=== PATIENT | female | born 1970 | race Caucasian/White ===

== ENCOUNTER 2018-08-21 11:47 | Emergency (ER) | payer OTHER ==
[2018-08-21] MEDS ORDERED: TORAdol 30 mg Injection IV ONE (12:36)
[2018-08-21] MEDS ORDERED: Phenergan 25 MG INJ IV ONE (12:36)
[2018-08-21] MEDS ORDERED: Hydromorphone 1 mg/ml Ampule IV ONE (12:36)
[2018-08-21] MEDS ORDERED: TORAdol 30 mg Injection ONE (12:42)
[2018-08-21] MEDS ORDERED: Phenergan 25 MG INJ ONE (12:42)
[2018-08-21] MEDS ORDERED: Hydromorphone 1 mg/ml Ampule ONE (12:43)
--- NOTE | 2018-08-21 12:59 | ERPHSYRPT ---
- History of Present Illness Time Seen by Provider: 08/21/18 12:35 Source: patient Exam Limitations: no limitations Patient Subjective Stated Complaint: pain in lower back that radiates around both sides and goes up middle of back Triage Nursing Assessment: Pt reports that she was bending over in her dresser drawers yesterday and when she stood up pain began in her lower back, radiates to both sides and up the middle of her back, periodical numbness of right leg, vitals wnl, pulses normal, appears to be in moderate pain Physician History: 48 y/o white female with no h/o back issues, presents with less than 24 hours bilat flank pain. began suddenly yesterday afternoon after pt stood up after bending over a dresser. she denies trauma. pt has a h/o ureteral stones and pt states this feels just like that. pt denies gross hematuria and denies dysuria. pt denies cp and denies abd pain. Method of Injury: other (no injury) Quality: sharp, stabbing Back Pain Location: paraspinous muscles (bilat) Severity of Pain-Max: moderate Severity of Pain-Current: moderate Modifying Factors: Improves With: movement (not as much pain if pt upright and moving) Associated Symptoms: denies symptoms, No fever, No chills, No sweating, No nausea, No vomiting Previous symptoms: no prior history Allergies/Adverse Reactions: No Known Drug Allergies Allergy (Verified 08/21/18 12:27) - Review of Systems Constitutional: No Symptoms, No Fever, No Chills Eyes: No Symptoms Ears, Nose, & Throat: No Symptoms Respiratory: No Symptoms, No Cough, No Dyspnea, No Stridor, No Wheezing Cardiac: No Symptoms, No Chest Pain, No Palpitations, No Syncope Abdominal/Gastrointestinal: No Symptoms Genitourinary Symptoms: No Symptoms, , No Dysuria, No Hematuria Musculoskeletal: Back Pain, No Fall, No Injury Skin: No Symptoms Neurological: No Symptoms Psychological: No Symptoms Endocrine: No Symptoms Hematologic/Lymphatic: No Symptoms Immunological/Allergic: No Symptoms All Other Systems: Reviewed and Negative - Past Medical History Pertinent Past Medical History: No Neurological History: No Pertinent History ENT History: No Pertinent History Cardiac History: No Pertinent History Respiratory History: No Pertinent History Endocrine Medical History: No Pertinent History Musculoskeletal History: No Pertinent History GI Medical History: No Pertinent History History: No Pertinent History Psycho-Social History: No Pertinent History Female Reproductive Disorders: No Pertinent History - Past Surgical History Past Surgical History: Yes Neuro Surgical History: No Pertinent History Cardiac: No Pertinent History Respiratory: No Pertinent History Gastrointestinal: No Pertinent History Genitourinary: No Pertinent History Musculoskeletal: No Pertinent History Female Surgical History: Tubal Ligation - Social History Smoking Status: Current every day smoker How long have you smoked: 30 years Exposure to second hand smoke: Yes Drug Use: marijuana Patient Lives Alone: Yes - Female History Hx Now: No (tubal) - Nursing Vital Signs Nursing Vital Signs: Initial Vital Signs Temperature 97.6 F 08/21/18 12:17 Pulse Rate 69 08/21/18 12:17 Blood Pressure 108/74 08/21/18 12:17 O2 Sat by Pulse Oximetry 99 08/21/18 12:17 Pain Scale Pain Intensity [Back] 9 Pain Intensity 9 - Physical Exam General Appearance: moderate distress, alert, anxiety Eye Exam: PERRL/EOMI, eyes nml inspection Ears, Nose, Throat Exam: normal ENT inspection, moist mucous membranes Neck Exam: normal inspection, non-tender, supple, full range of motion Respiratory Exam: normal breath sounds, lungs clear, airway intact, No chest tenderness, No respiratory distress, No accessory muscle use, No rhonchi, No wheezing, No stridor Cardiovascular Exam: regular rate/rhythm, normal heart sounds, normal peripheral pulses Gastrointestinal Exam: soft, normal bowel sounds, No tenderness, No guarding, No rebound Pelvic Exam: not done Rectal Exam: not done Back Exam: normal inspection, normal range of motion, CVA tenderness (bilat), No vertebral tenderness Extremity Exam: normal inspection, normal range of motion, pelvis stable Neurologic Exam: alert, oriented x 3, cooperative, osteopathic neurologist II-XII nml as tested Skin Exam: normal color, warm, dry Lymphatic Exam: No adenopathy SpO2 Interpretation: normal SpO2: 99 Oxygen Delivery: Room Air - Course Nursing assessment & vital signs reviewed: Yes Ordered Tests: Active Orders 24 hr Category Date Time Status IV Insertion STAT Care 08/21/18 12:36 Active UA W/RFX UR CULTURE Stat Lab 08/21/18 12:38 Completed Medication Summary Discontinued Medications Generic Name Dose Route Start Last Admin Trade Name Freq PRN Reason Stop Dose Admin Hydromorphone HCl 0.5 mg 08/21/18 12:36 10/16/18 12:49 Hydromorphone 1 Mg/Ml Ampule IV 08/21/18 12:37 0.5 mg STAT ONE Administration Hydromorphone HCl Confirm 08/21/18 12:43 Hydromorphone 1 Mg/Ml Ampule Administered 08/21/18 12:44 Dose 1 mg .ROUTE .STK-MED ONE Ketorolac Tromethamine 30 mg 08/21/18 12:36 08/21/18 12:48 Toradol 30 Mg Injection IV 08/21/18 12:37 30 mg STAT ONE Administration Ketorolac Tromethamine Confirm 08/21/18 12:42 Toradol 30 Mg Injection Administered 08/21/18 12:43 Dose 30 mg .ROUTE .STK-MED ONE Promethazine HCl 12.5 mg 08/21/18 12:36 08/21/18 12:48 Phenergan 25 Mg Inj IV 08/21/18 12:37 12.5 mg STAT ONE Administration Promethazine HCl Confirm 08/21/18 12:42 Phenergan 25 Mg Inj Administered 08/21/18 12:43 Dose 25 mg .ROUTE .STK-MED ONE Lab/Rad Data: Laboratory Results 08/21/18 Range/Units 12:38 Urine Color YELLOW (YELLOW) Urine Appearance CLOUDY (CLEAR) Urine pH 5.0 (5-6) Ur Specific [place] 1.016 (1.005-1.025) Urine Protein NEGATIVE (Negative) Urine Ketones NEGATIVE (NEGATIVE) Urine Blood SMALL (0-5) Calvin/ul Urine Nitrite NEGATIVE (NEGATIVE) Urine Bilirubin NEGATIVE (NEGATIVE) Urine Urobilinogen NEGATIVE (0-1) mg/dL Ur Leukocyte Esterase NEGATIVE (NEGATIVE) Urine WBC (Auto) 0-2 (0-5) /HPF Urine RBC (Auto) 0-2 (0-2) /HPF U Epithel Cells (Auto) MODERATE (FEW) /HPF Urine Bacteria (Auto) FEW (NEGATIVE) /HPF Urine Mucus (Auto) SLIGHT (NEGATIVE) /HPF Urine Culture Reflexed NO (NO) Urine Glucose NEGATIVE (NEGATIVE) mg/dL - Progress Progress: improved, pain not gone completely, re-examined Counseled pt/family regarding: lab results, diagnosis, need for follow-up - Departure Time of Disposition: 13:52 Departure Disposition: Home Clinical Impression: Back pain Condition: Stable Critical Care Time: No Additional Instructions: follow up with primary doctor for further management Prescriptions: Carisoprodol 350 mg [Soma 350 mg] 350 mg PO Q8H PRN PRN #10 tablet PRN Reason: Muscle Spasms Oxycodone HCl/Acetaminophen [Percocet 5-325 mg Tablet] 1 each PO Q8H PRN PRN #9 tablet MDD 3 PRN Reason: Pain Prednisone 10 mg [Deltasone 10 mg] 10 mg PO TID #12 tablet
[2018-08-21 13:19] LABS: Appearance CLOUDY (CLEAR); Bilirubin NEGATIVE (NEGATIVE); Blood SMALL Ery/ul (0-5); Glucose NEGATIVE (NEGATIVE); Ketones NEGATIVE (NEGATIVE); Leukocyte Esterase NEGATIVE (NEGATIVE); Nitrite NEGATIVE (NEGATIVE); Protein,Urine Dip NEGATIVE (Negative); Specific Gravity 1.016 (1.005-1.025); Urobilinogen NEGATIVE mg/dL (0-1)
[2018-08-21 14:05] VITALS: BP 100/52; PULSE 51; O2SAT 100
== END 2018-08-21 14:13 | disposition home or self-care (01) ==
LOC: ED 11:47
DX: M54.9 Dorsalgia, unspecified (principal)
CPT/HCPCS: 36000; 81001; 96374; 96375; 99284; J1170; J1885; J2550

== ENCOUNTER 2020-12-20 12:34 | Emergency (ER) | payer OTHER ==
[2020-12-20 12:47] VITALS: BP 146/83; PULSE 83; O2SAT 98
[2020-12-20] MEDS ORDERED: Adacel Vial IM ONE ×2 (12:48→12:59)
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
--- NOTE | 2020-12-20 17:56 | XRAY ---
Indication: Pain following injury. Comparison: None 3 view right hand obtained. No bony, articular, or soft tissue abnormalities.
== END 2020-12-20 14:17 | disposition home or self-care (01) ==
LOC: ED 12:34
DX: M79.644 Pain in right finger(s) (principal); S62.609A Fracture of unspecified phalanx of unspecified finger, initial encounter for closed fracture; S64.498A Injury of digital nerve of other finger, initial encounter; M79.89 Other specified soft tissue disorders; W23.1XXA Caught, crushed, jammed, or pinched between stationary objects, initial encounter; F17.210 Nicotine dependence, cigarettes, uncomplicated
CPT/HCPCS: 29130; 73130; 90471; 90715; 99284

== ENCOUNTER 2022-10-11 12:40 | Emergency (ER) | payer OTHER ==
--- NOTE | 2022-10-11 12:44 | ERPHSYRPT ---
- History of Present Illness Time Seen by Provider: 10/11/22 12:43 Source: patient Exam Limitations: no limitations Physician History: This is an overweight white female who presents with left flank pain that is worsened over the last 2 days. Initially, Aleve and ibuprofen were helpful. However, this morning the pain was even worse pain was not improved with Flexeril dose. Patient did not fall or suffer any acute trauma. She has had history of ureterolithiasis in the past. She denies chest pain. She denies shortness of breath. She denies dysuria Timing/Duration: day(s) (2) Quality: aching, cramping Severity of Pain-Max: moderate Severity of Pain-Current: moderate Associated Symptoms: denies symptoms Previous symptoms: same symptoms as today Allergies/Adverse Reactions: No Known Drug Allergies Allergy (Verified 12/20/20 12:38) Home Medications: Cyclobenzaprine HCl 10 mg [Cyclobenzaprine 10 MG] 10 mg PO DAILY PRN 10/11/22 [History] Prednisone 20 mg [Deltasone 20 mg] 20 mg PO DAILY 10/11/22 [History] Hx Tetanus, Diphtheria Vaccination/Date Given: No Hx Influenza Vaccination/Date Given: No Hx Pneumococcal Vaccination/Date Given: No Travel Risk - International Travel Have you traveled outside of the country in past 3 weeks: No - Coronavirus Screening Are you exhibiting any of the following symptoms?: No Close contact with a COVID-19 positive Pt in past 14-21 Days: No - Review of Systems Constitutional: No Symptoms Eyes: No Symptoms Ears, Nose, & Throat: No Symptoms Respiratory: No Symptoms Cardiac: No Symptoms Abdominal/Gastrointestinal: No Symptoms, No Abdominal Pain Genitourinary Symptoms: Flank Pain (Left flank) Musculoskeletal: No Symptoms Skin: No Symptoms Neurological: No Symptoms Psychological: No Symptoms Endocrine: No Symptoms Hematologic/Lymphatic: No Symptoms Immunological/Allergic: No Symptoms All Other Systems: Reviewed and Negative - Past Medical History Pertinent Past Medical History: No Neurological History: No Pertinent History ENT History: No Pertinent History Cardiac History: No Pertinent History Respiratory History: No Pertinent History Endocrine Medical History: No Pertinent History Musculoskeletal History: Osteoarthritis GI Medical History: No Pertinent History History: No Pertinent History Psycho-Social History: No Pertinent History Female Reproductive Disorders: No Pertinent History Other Medical History: Patient reports recurrent kidney stones - Past Surgical History Past Surgical History: Yes Neuro Surgical History: No Pertinent History Cardiac: No Pertinent History Respiratory: No Pertinent History Gastrointestinal: No Pertinent History Genitourinary: No Pertinent History Musculoskeletal: No Pertinent History Female Surgical History: Tubal Ligation - Social History Smoking Status: Current every day smoker How long have you smoked: 30 years Exposure to second hand smoke: Yes Drug Use: marijuana Patient Lives Alone: No - Nursing Vital Signs Nursing Vital Signs: Initial Vital Signs Temperature 97.6 F 10/11/22 12:51 Pulse Rate 75 10/11/22 12:51 Respiratory Rate 16 10/11/22 12:51 Blood Pressure 130/86 10/11/22 12:51 O2 Sat by Pulse Oximetry 98 10/11/22 12:51 Pain Scale Pain Intensity 4 - Physical Exam General Appearance: mild distress, alert, anxiety, obese Eye Exam: PERRL/EOMI, eyes nml inspection Ears, Nose, Throat Exam: normal ENT inspection, moist mucous membranes Neck Exam: normal inspection, non-tender, supple, full range of motion Respiratory Exam: normal breath sounds, lungs clear, airway intact, No chest tenderness, No respiratory distress Cardiovascular Exam: regular rate/rhythm, normal heart sounds, normal peripheral pulses Gastrointestinal Exam: soft, normal bowel sounds, tenderness (+/- Left lower quadrant), guarding (+/- Left lower quadrant to palpation) Pelvic Exam: not done Rectal Exam: not done Back Exam: normal inspection, normal range of motion, CVA tenderness (Left), No vertebral tenderness Extremity Exam: normal inspection, normal range of motion, pelvis stable Neurologic Exam: alert, oriented x 3, cooperative, homeworker II-XII nml as tested, normal mood/affect, nml cerebellar function, nml station & gait, sensation nml Skin Exam: normal color, warm, dry Lymphatic Exam: No adenopathy SpO2 Interpretation: normal O2 Delivery: Room Air - Course Nursing assessment & vital signs reviewed: Yes Ordered Tests: Active Orders 24 hr Category Date Time Status IV Insertion STAT Care 10/11/22 12:58 Active ABDOMEN AND PELVIS W/0 CONTRAS [CT] Stat Exams 10/11/22 12:59 Completed AMYLASE Stat Lab 10/11/22 13:00 Completed CBC W DIFF Stat Lab 10/11/22 13:00 Completed CMP Stat Lab 10/11/22 13:00 Completed CULTURE,URINE Stat Lab 10/11/22 13:03 Received LIPASE Stat Lab 10/11/22 13:00 Completed UA W/RFX CULTURE Stat Lab 10/11/22 13:03 Completed Medication Summary Discontinued Medications Generic Name Dose Route Start Last Admin Trade Name Gideon PRN Reason Stop Dose Admin Hydromorphone HCl 1 mg 10/11/22 12:58 10/11/22 13:11 Hydromorphone 1 Mg/1ml Inj 1 Mg/Ml Syringe IV 10/11/22 12:59 1 mg STAT ONE Administration Hydromorphone HCl Confirm 10/11/22 13:05 Hydromorphone 1 Mg/1ml Inj 1 Mg/Ml Syringe Administered 10/11/22 13:06 Dose 1 mg .ROUTE .STK-MED ONE Sodium Chloride 1,000 mls @ 999 mls/hr 10/11/22 12:58 10/11/22 14:20 Sodium Chloride 0.9% 1000 Ml IV 10/11/22 13:58 Infused .Q1H1M STA Infusion Sodium Chloride Confirm 10/11/22 13:05 Sodium Chloride 0.9% 1000 Ml Administered 10/11/22 13:06 Dose 1,000 mls @ ud .ROUTE .STK-MED ONE Ketorolac Tromethamine 30 mg 10/11/22 12:58 10/11/22 13:11 Ketorolac Tromethamine 30 Mg/Ml Inj IV 10/11/22 12:59 30 mg STAT ONE Administration Ketorolac Tromethamine Confirm 10/11/22 13:05 Ketorolac Tromethamine 30 Mg/Ml Inj Administered 10/11/22 13:06 Dose 30 mg .ROUTE .STK-MED ONE Ondansetron HCl 4 mg 10/11/22 12:58 10/11/22 13:11 Ondansetron Hcl 4 Mg/2 Ml Vial IV 10/11/22 12:59 4 mg STAT ONE Administration Ondansetron HCl Confirm 10/11/22 13:05 Ondansetron Hcl 4 Mg/2 Ml Vial Administered 10/11/22 13:06 Dose 4 mg .ROUTE .STK-MED ONE Lab/Rad Data: Laboratory Result Diagrams 10/11/22 13:00 10/11/22 13:00 Laboratory Results 10/11/22 10/11/22 10/11/22 Range/Units 13:03 13:00 13:00 WBC 16.5 H (4.0-10.5) x10^3/uL RBC 4.51 (4.1-5.4) x10^6/uL Hgb 14.1 (12.0-16.0) g/dL Hct 45.4 (35-47) % MCV 100.7 H (78-100) fL MCH 31.3 (26-32) pg MCHC 31.1 L (32-36) g/dL RDW 13.2 (11.5-14.0) % Plt Count 311 (150-450) x10^3/uL MPV 11.4 H (7.5-11.0) fL Gran % 76.4 H (36.0-66.0) % Immature Gran % (Auto) 0.5 H (0.00-0.4) % Nucleat RBC Rel Count 0.0 (0.00-0.1) % Eos # (Auto) 0.14 (0-0.5) x10^3/uL Immature Gran # (Auto) 0.09 H (0.00-0.03) x10^3u/L Absolute Lymphs (auto) 2.70 (1.0-4.6) x10^3/uL Absolute Monos (auto) 0.92 (0.0-1.3) x10^3/uL Absolute Nucleated RBC 0.00 (0.00-0.01) x10^3u/L Lymphocytes % 16.4 L (24.0-44.0) % Monocytes % 5.6 (0.0-12.0) % Eosinophils % 0.9 (0.00-5.0) % Basophils % 0.2 (0.0-0.4) % Absolute Granulocytes 12.59 H (1.4-6.9) x10^3/uL Basophils # 0.03 (0-0.4) x10^3/uL Sodium 138 (137-145) mmol/L Potassium 4.4 (3.5-5.1) mmol/L Chloride 108 H (98-107) mmol/L Carbon Dioxide 20 L (22-30) mmol/L Anion Gap 14.0 (5-15) MEQ/L BUN 20 H (7-17) mg/dL Creatinine 0.50 L (0.52-1.04) mg/dL Estimated GFR > 60.0 ML/MIN Glucose 128 H (74-106) mg/dL Calcium 9.2 (8.4-10.2) mg/dL Total Bilirubin 0.70 (0.2-1.3) mg/dL AST 34 (14-36) U/L ALT 30 (0-35) U/L Alkaline Phosphatase 128 H (38-126) U/L Serum Total Protein 8.2 (6.3-8.2) g/dL Albumin 4.3 (3.5-5.0) g/dL Amylase 89 (30-110) U/L Lipase 47 (23-300) U/L Urinalys Dipstick Clnc MAIN LAB Urine Color YELLOW (YELLOW) Urine Appearance SLIGHTLY CLOUDY A (CLEAR) Urine pH 6.0 (5-6) Ur Specific [place] >=1.030 A (1.005-1.025) POC Urine Protein Conf NEGATIVE (Negative) Urine Ketones NEGATIVE (NEGATIVE) Urine Nitrite NEGATIVE (NEGATIVE) Urine Bilirubin NEGATIVE (NEGATIVE) Urine Urobilinogen 0.2 (0-1) mg/dL Urine Leukocytes TRACE A (NEGATIVE) Urine WBC (Auto) 3-5 A (0-5) /HPF Urine RBC (Auto) 3-5 A (0-2) /HPF U Epithel Cells (Auto) FEW (FEW) /HPF Urine Bacteria (Auto) RARE (NEGATIVE) /HPF Urine RBC TRACE-INTACT A (0-5) Calvin/ul Urine Mucus (Auto) SLIGHT A (NEGATIVE) /HPF Ur Culture Indicated? YES Urine Glucose NEGATIVE (NEGATIVE) mg/dL - Progress Progress: improved, pain not gone completely Progress Note: 10/11/22 14:31 CT scan without contrast shows no evidence of renal calculus or obstructive uropathy. There is mild sigmoid diverticulitis without complications. Counseled pt/family regarding: lab results, diagnosis, need for follow-up, rad results - Departure Departure Disposition: Home Clinical Impression: Sigmoid diverticulitis, Urinary tract infection Condition: Stable Critical Care Time: No Referrals: DOCTOR,NO FAMILY [Primary Care Provider] - Follow up/PCP as directed Additional Instructions: Drink plenty of clear liquids. Take your antibiotics as prescribed. Follow-up with your primary care physician for further evaluation management. Return to the emergency department if symptoms worsen. Prescriptions: Hydrocodone/APAP 5/325 [[place] 5/325 mg] 1 each PO Q8H PRN PRN #10 tablet MDD 3 PRN Reason: Pain Ciprofloxacin [Cipro 500 MG] 500 mg PO BID #14 tablet Metronidazole 500 mg [Flagyl 500 MG] 500 mg PO TID #21 tablet
[2022-10-11] MEDS ORDERED: TORAdol 30 mg Injection IV ONE (12:58)
[2022-10-11] MEDS ORDERED: Hydromorphone 1 mg/ml Injection IV ONE (12:58)
[2022-10-11] MEDS ORDERED: Zofran 4 MG/2 ML VIAL IV ONE (12:58)
[2022-10-11] MEDS ORDERED: Sodium Chloride 0.9% 1000 ML 1,000 ML IV STA (12:58)
[2022-10-11] MEDS ORDERED: Zofran 4 MG/2 ML VIAL ONE (13:05)
[2022-10-11] MEDS ORDERED: Sodium Chloride 0.9% 1000 ML 1,000 ML ONE (13:05)
[2022-10-11] MEDS ORDERED: Hydromorphone 1 mg/ml Injection ONE (13:05)
[2022-10-11] MEDS ORDERED: TORAdol 30 mg Injection ONE (13:05)
[2022-10-11 13:19] LABS: Absolute Neutrophil Ct (ANC) 12.59 x10^3/uL (1.4-6.9); Basophil (Absolute #) 0.03 x10^3/uL (0-0.4); Eosinophil % 0.9 % (0.00-5.0); Eosinophil (Absolute #) 0.14 x10^3/uL (0-0.5); Hematocrit 45.4 % (35-47); Hemoglobin 14.1 g/dL (12.0-16.0); Lymphocytes % 16.4 % (24.0-44.0); Mean Cell Volume 100.7 fL (78-100); Mean Corpuscular Hemoglobin 31.3 pg (26-32); Mean Corpuscular Hgb Concent. 31.1 g/dL (32-36); Mean Platelet Volume 11.4 fL (7.5-11.0); Monocyte (Absolute #) 0.92 x10^3/uL (0.0-1.3); Monocytes % 5.6 % (0.0-12.0); Neutrophil % 76.4 % (36.0-66.0); Platelet Count 311 x10^3/uL (150-450); Red Blood Count 4.51 x10^6/uL (4.1-5.4); Red Cell Distribution Width 13.2 % (11.5-14.0); White Blood Count 16.5 x10^3/uL (4.0-10.5)
[2022-10-11 13:25] LABS: Appearance SLIGHTLY CLOUDY (CLEAR); Bilirubin NEGATIVE (NEGATIVE); Dipstick done @ ? MAIN LAB; Glucose NEGATIVE (NEGATIVE); Ketones NEGATIVE (NEGATIVE); Nitrite NEGATIVE (NEGATIVE); Protein,Urine Dip NEGATIVE (Negative); RBC TRACE-INTACT Ery/ul (0-5); Specific Gravity >=1.030 (1.005-1.025); Urobilinogen 0.2 mg/dL (0-1)
[2022-10-11 13:34] LABS: Epithelial Cells FEW /HPF (FEW); Mucus SLIGHT /HPF (NEGATIVE)
[2022-10-11 13:40] LABS: ALBUMIN 4.3 g/dL (3.5-5.0); ALKALINE PHOSPHATASE 128 U/L (38-126); AMYLASE 89 U/L (30-110); BLOOD UREA NITROGEN 20 mg/dL (7-17); CHLORIDE 108 mmol/L (98-107); Calcium 9.2 mg/dL (8.4-10.2); Carbon Dioxide 20 mmol/L (22-30); EST GLOMERULAR FILTRATION RATE > 60.0 ML/MIN; Glucose 128 mg/dL (74-106); LIPASE 47 U/L (23-300); SGOT/AST 34 U/L (14-36); SGPT/ALT 30 U/L (0-35); SODIUM 138 mmol/L (137-145); Total Protein 8.2 g/dL (6.3-8.2)
[2022-10-11 13:41] LABS: Potassium 4.4 mmol/L (3.5-5.1)
[2022-10-11 14:05] LABS: Bacteria RARE /HPF (NEGATIVE); Urine Cultured Indicated? YES
--- NOTE | 2022-10-11 14:08 | XRAY ---
Indication: Left flank pain 6 days. History ureterolithiasis. Multiple contiguous axial images obtained through the abdomen and pelvis without contrast using renal stone protocol. Comparison: None Lung bases demonstrates dependent atelectasis and tiny right base calcific granuloma. Heart not enlarged. No renal calculus or evidence for obstructive uropathy in either system. Noncontrasted stomach and bowel loops appear nonobstructed with normal appendix. Minimal sigmoid diverticulosis with minimal pericolonic stranding favoring diverticulitis. No free fluid/air. Incidental splenic calcified granulomas. Remaining liver, gallbladder, pancreas, spleen, adrenal glands, kidneys, ureters, bladder, and uterus are unremarkable for noncontrast exam. Minimal aortoiliac calcifications without AAA. Osseous structures intact. Impression: 1. Negative renal calculus or evidence for obstructive uropathy. 2. Incidental minimal sigmoid diverticulitis without complications.
[2022-10-11 15:04] VITALS: BP 128/91; PULSE 66; O2SAT 95
== END 2022-10-11 15:12 | disposition home or self-care (01) ==
LOC: ED 12:40
DX: N39.0 Urinary tract infection, site not specified (principal); K57.32 Diverticulitis of large intestine without perforation or abscess without bleeding; R10.9 Unspecified abdominal pain; Z79.891 Long term (current) use of opiate analgesic; Z79.52 Long term (current) use of systemic steroids; Z79.899 Other long term (current) drug therapy; Z72.0 Tobacco use
CPT/HCPCS: 36000; 36415; 74176; 80053; 81015; 82150; 83690; 85025; 87086; 96360; 96374; 96375; 99284; J1170; J1885; J2405

== ENCOUNTER 2022-10-13 18:47 | Emergency (ER) | payer OTHER ==
--- NOTE | 2022-10-13 19:14 | ERPHSYRPT ---
- History of Present Illness Time Seen by Provider: 10/13/22 19:13 Historian: patient, family Exam Limitations: no limitations Physician History: This is an overweight 52-year-old white female patient of Dr. Klein who was seen in our emergency department on 10/11/2022 by me and was diagnosed with a urinary tract infection and mild sigmoid diverticulitis without complications. There was minimal aortoiliac calcifications and no abdominal aortic aneurysm on that CAT scan. She was sent with a prescription for [place], Cipro and Flagyl. In the last 2 days, she has worsening left lower quadrant abdominal pain and left flank/back pain. Her last pain medicine was on [place] at 1500 prior to arrival. Timing/Duration: day(s) (4) Activities at Onset: none Abdominal Pain Onset Location: LLQ, flank (Left) Severity of Pain-Max: moderate Severity of Pain-Current: moderate Associated Symptoms: denies symptoms Previous symptoms: same symptoms as today, recently seen, recently treated Allergies/Adverse Reactions: No Known Drug Allergies Allergy (Verified 12/20/20 12:38) Home Medications: Cyclobenzaprine HCl 10 mg [Cyclobenzaprine 10 MG] 10 mg PO DAILY PRN 10/11/22 [History] Prednisone 20 mg [Deltasone 20 mg] 20 mg PO DAILY 10/11/22 [History] Hx Tetanus, Diphtheria Vaccination/Date Given: No Hx Influenza Vaccination/Date Given: No Hx Pneumococcal Vaccination/Date Given: No Travel Risk - International Travel Have you traveled outside of the country in past 3 weeks: No - Coronavirus Screening Are you exhibiting any of the following symptoms?: No Close contact with a COVID-19 positive Pt in past 14-21 Days: No - Vaccine Status Have you recieved a Covid-19 vaccination: Yes Redevelopment Specialist: Moderna - Vaccination Dates Date of 2cond Vaccination (if applicable): unknown - Review of Systems Constitutional: No Symptoms Eyes: No Symptoms Ears, Nose, & Throat: No Symptoms Respiratory: No Symptoms Cardiac: No Symptoms Abdominal/Gastrointestinal: Abdominal Pain (Left lower quadrant) Genitourinary Symptoms: Flank Pain (Left flank pain) Musculoskeletal: No Symptoms Skin: No Symptoms Neurological: No Symptoms Psychological: No Symptoms Endocrine: No Symptoms Hematologic/Lymphatic: No Symptoms Immunological/Allergic: No Symptoms All Other Systems: Reviewed and Negative - Past Medical History Pertinent Past Medical History: No Neurological History: No Pertinent History ENT History: No Pertinent History Cardiac History: No Pertinent History Respiratory History: No Pertinent History Endocrine Medical History: No Pertinent History Musculoskeletal History: Osteoarthritis GI Medical History: No Pertinent History History: No Pertinent History Psycho-Social History: No Pertinent History Female Reproductive Disorders: No Pertinent History Other Medical History: Patient reports recurrent kidney stones - Past Surgical History Past Surgical History: Yes Neuro Surgical History: No Pertinent History Cardiac: No Pertinent History Respiratory: No Pertinent History Gastrointestinal: No Pertinent History Genitourinary: No Pertinent History Musculoskeletal: No Pertinent History Female Surgical History: Tubal Ligation - Social History Smoking Status: Current every day smoker How long have you smoked: 30 years Exposure to second hand smoke: Yes Drug Use: marijuana Patient Lives Alone: No - Nursing Vital Signs Nursing Vital Signs: Initial Vital Signs Temperature 97.7 F 10/13/22 19:11 Pulse Rate 62 10/13/22 19:11 Respiratory Rate 18 10/13/22 19:11 Blood Pressure 136/87 10/13/22 19:11 O2 Sat by Pulse Oximetry 96 10/13/22 19:11 Pain Scale Pain Intensity 9 - Physical Exam General Appearance: no apparent distress, alert, anxiety Eye Exam: PERRL/EOMI Ears, Nose, Throat Exam: normal ENT inspection, moist mucous membranes Neck Exam: normal inspection, non-tender, supple, full range of motion Respiratory Exam: normal breath sounds, lungs clear, airway intact, No chest tenderness, No respiratory distress Cardiovascular Exam: regular rate/rhythm, normal heart sounds, normal peripheral pulses Gastrointestinal/Abdomen Exam: soft, normal bowel sounds, tenderness (Left lower quadrant), guarding (Left lower quadrant to palpation), No rebound Pelvic Exam: not done Rectal Exam: not done Back Exam: normal inspection, normal range of motion, No CVA tenderness, No vertebral tenderness Extremity Exam: normal inspection, normal range of motion, pelvis stable Neurologic Exam: alert, oriented x 3, cooperative, consulting sme II-XII nml as tested, normal mood/affect, nml cerebellar function, nml station & gait, sensation nml Skin Exam: normal color, warm, dry Lymphatic Exam: No adenopathy SpO2 Interpretation: normal O2 Delivery: Room Air - Course Nursing assessment & vital signs reviewed: Yes Ordered Tests: Active Orders 24 hr Category Date Time Status IV Insertion STAT Care 10/13/22 19:39 Active ABDOMEN AND PELVIS W/0 CONTRAS [CT] Stat Exams 10/13/22 19:39 Taken AMYLASE Stat Lab 10/13/22 19:50 Completed CBC W DIFF Stat Lab 10/13/22 19:50 Completed CMP Stat Lab 10/13/22 19:50 Completed CULTURE,URINE Stat Lab 10/13/22 19:41 Received LIPASE Stat Lab 10/13/22 19:50 Completed UA W/RFX CULTURE Stat Lab 10/13/22 19:41 Completed Medication Summary Discontinued Medications Generic Name Dose Route Start Last Admin Trade Name Freq PRN Reason Stop Dose Admin Hydromorphone HCl 1 mg 10/13/22 19:39 10/13/22 20:25 Hydromorphone 1 Mg/1ml Inj 1 Mg/Ml Syringe IV 10/13/22 19:40 1 mg STAT ONE Administration Hydromorphone HCl Confirm 10/13/22 20:23 Hydromorphone 1 Mg/1ml Inj 1 Mg/Ml Syringe Administered 10/13/22 20:24 Dose 1 mg .ROUTE .STK-MED ONE Sodium Chloride 1,000 mls @ 999 mls/hr 10/13/22 19:39 10/13/22 20:25 Sodium Chloride 0.9% 1000 Ml IV 10/13/22 20:39 999 mls/hr .Q1H1M STA Administration Sodium Chloride Confirm 10/13/22 20:24 Sodium Chloride 0.9% 1000 Ml Administered 10/13/22 20:25 Dose 1,000 mls @ ud .ROUTE .STK-MED ONE Prochlorperazine Edisylate 5 mg 10/13/22 19:39 10/13/22 20:25 Prochlorperazine Edisylate 10 Mg/2 Ml Vial IV 10/13/22 19:40 5 mg STAT ONE Administration Prochlorperazine Edisylate Confirm 10/13/22 20:24 Prochlorperazine Edisylate 10 Mg/2 Ml Vial Administered 10/13/22 20:25 Dose 10 mg .ROUTE .STK-MED ONE Lab/Rad Data: Laboratory Result Diagrams 10/13/22 19:50 10/13/22 19:50 Laboratory Results 12/08/22 12/08/22 12/08/22 Range/Units 19:50 19:50 19:41 WBC 10.6 H (4.0-10.5) x10^3/uL RBC 4.30 (4.1-5.4) x10^6/uL Hgb 13.5 (12.0-16.0) g/dL Hct 40.3 (35-47) % MCV 93.7 (78-100) fL MCH 31.4 (26-32) pg MCHC 33.5 (32-36) g/dL RDW 12.8 (11.5-14.0) % Plt Count 313 (150-450) x10^3/uL MPV 11.3 H (7.5-11.0) fL Gran % 67.0 H (36.0-66.0) % Immature Gran % (Auto) 0.3 (0.00-0.4) % Nucleat RBC Rel Count 0.0 (0.00-0.1) % Eos # (Auto) 0.15 (0-0.5) x10^3/uL Immature Gran # (Auto) 0.03 (0.00-0.03) x10^3u/L Absolute Lymphs (auto) 2.53 (1.0-4.6) x10^3/uL Absolute Monos (auto) 0.75 (0.0-1.3) x10^3/uL Absolute Nucleated RBC 0.00 (0.00-0.01) x10^3u/L Lymphocytes % 23.8 L (24.0-44.0) % Monocytes % 7.1 (0.0-12.0) % Eosinophils % 1.4 (0.00-5.0) % Basophils % 0.4 (0.0-0.4) % Absolute Granulocytes 7.12 H (1.4-6.9) x10^3/uL Basophils # 0.04 (0-0.4) x10^3/uL Sodium 139 (137-145) mmol/L Potassium 3.7 (3.5-5.1) mmol/L Chloride 106 (98-107) mmol/L Carbon Dioxide 23 (22-30) mmol/L Anion Gap 13.3 (5-15) MEQ/L BUN 17 (7-17) mg/dL Creatinine 0.56 (0.52-1.04) mg/dL Estimated GFR > 60.0 ML/MIN Glucose 98 (74-106) mg/dL Calcium 9.1 (8.4-10.2) mg/dL Total Bilirubin 0.40 (0.2-1.3) mg/dL AST 29 (14-36) U/L ALT 29 (0-35) U/L Alkaline Phosphatase 124 (38-126) U/L Serum Total Protein 7.8 (6.3-8.2) g/dL Albumin 4.2 (3.5-5.0) g/dL Amylase 70 (30-110) U/L Lipase 48 (23-300) U/L Urinalys Dipstick Clnc MAIN LAB Urine Color YELLOW (YELLOW) Urine Appearance CLEAR (CLEAR) Urine pH 5.5 (5-6) Ur Specific Beth[place] >=1.030 A (1.005-1.025) POC Urine Protein Conf NEGATIVE (Negative) Urine Ketones TRACE A (NEGATIVE) Urine Nitrite NEGATIVE (NEGATIVE) Urine Bilirubin SMALL A (NEGATIVE) Urine Urobilinogen 0.2 (0-1) mg/dL Urine Leukocytes SMALL A (NEGATIVE) Urine WBC (Auto) 3-5 A (0-5) /HPF Urine RBC (Auto) 6-10 A (0-2) /HPF U Epithel Cells (Auto) FEW (FEW) /HPF Urine Bacteria (Auto) RARE (NEGATIVE) /HPF Urine RBC TRACE-INTACT A (0-5) Calvin/ul Urine Mucus (Auto) SLIGHT A (NEGATIVE) /HPF Ur Culture Indicated? YES Urine Glucose NEGATIVE (NEGATIVE) mg/dL - Progress Progress: improved, pain not gone completely, re-examined Progress Note: 10/13/22 20:43 CT scan of the abdomen pelvis without contrast shows improvement in the sigmoid diverticulitis. No other changes when compared to the CAT scan performed of the abdomen pelvis without contrast on 10/11/2022 Counseled pt/family regarding: lab results, diagnosis, need for follow-up, rad results - Departure Departure Disposition: Home Clinical Impression: Left lower quadrant abdominal pain, UTI (urinary tract infection), Left flank pain Condition: Stable Critical Care Time: No Referrals: LUCAS KLEIN MD [Primary Care Provider] - Follow up/PCP as directed Additional Instructions: Drink plenty of fluids. Continue your Flexeril and prednisone. Continue your antibiotics as prescribed. Follow-up tomorrow with your prescribing provider and make arrangements for further evaluation management.
[2022-10-13] MEDS ORDERED: Compazine 10 MG/2 ML IV ONE (19:39)
[2022-10-13] MEDS ORDERED: Sodium Chloride 0.9% 1000 ML 1,000 ML IV STA (19:39)
[2022-10-13] MEDS ORDERED: Hydromorphone 1 mg/ml Injection IV ONE (19:39)
[2022-10-13 19:54] LABS: Bacteria RARE /HPF (NEGATIVE); Epithelial Cells FEW /HPF (FEW); Mucus SLIGHT /HPF (NEGATIVE)
[2022-10-13 19:56] LABS: Absolute Neutrophil Ct (ANC) 7.12 x10^3/uL (1.4-6.9); Basophil (Absolute #) 0.04 x10^3/uL (0-0.4); Eosinophil % 1.4 % (0.00-5.0); Eosinophil (Absolute #) 0.15 x10^3/uL (0-0.5); Hematocrit 40.3 % (35-47); Hemoglobin 13.5 g/dL (12.0-16.0); Lymphocyte (Absolute #) 2.53 x10^3/uL (1.0-4.6); Lymphocytes % 23.8 % (24.0-44.0); Mean Cell Volume 93.7 fL (78-100); Mean Corpuscular Hemoglobin 31.4 pg (26-32); Mean Corpuscular Hgb Concent. 33.5 g/dL (32-36); Mean Platelet Volume 11.3 fL (7.5-11.0); Monocyte (Absolute #) 0.75 x10^3/uL (0.0-1.3); Monocytes % 7.1 % (0.0-12.0); Platelet Count 313 x10^3/uL (150-450); Red Cell Distribution Width 12.8 % (11.5-14.0); White Blood Count 10.6 x10^3/uL (4.0-10.5)
[2022-10-13 19:59] LABS: Appearance CLEAR (CLEAR); Bilirubin SMALL (NEGATIVE); Glucose NEGATIVE (NEGATIVE); Ketones TRACE (NEGATIVE); RBC TRACE-INTACT Ery/ul (0-5); Specific Gravity >=1.030 (1.005-1.025)
[2022-10-13 20:00] LABS: Dipstick done @ ? MAIN LAB; Nitrite NEGATIVE (NEGATIVE); Ph 5.5 (5-6); Protein,Urine Dip NEGATIVE (Negative); Urobilinogen 0.2 mg/dL (0-1)
[2022-10-13 20:04] LABS: Urine Cultured Indicated? YES
[2022-10-13 20:14] LABS: ALBUMIN 4.2 g/dL (3.5-5.0); ALKALINE PHOSPHATASE 124 U/L (38-126); AMYLASE 70 U/L (30-110); ANION GAP 13.3 MEQ/L (5-15); BLOOD UREA NITROGEN 17 mg/dL (7-17); CHLORIDE 106 mmol/L (98-107); Calcium 9.1 mg/dL (8.4-10.2); Carbon Dioxide 23 mmol/L (22-30); Creatinine 1 0.56 mg/dL (0.52-1.04); EST GLOMERULAR FILTRATION RATE > 60.0 ML/MIN; Glucose 98 mg/dL (74-106); LIPASE 48 U/L (23-300); Potassium 3.7 mmol/L (3.5-5.1); SGOT/AST 29 U/L (14-36); SGPT/ALT 29 U/L (0-35); SODIUM 139 mmol/L (137-145); Total Protein 7.8 g/dL (6.3-8.2)
[2022-10-13] MEDS ORDERED: Hydromorphone 1 mg/ml Injection ONE (20:23)
[2022-10-13] MEDS ORDERED: Compazine 10 MG/2 ML ONE (20:24)
[2022-10-13] MEDS ORDERED: Sodium Chloride 0.9% 1000 ML 1,000 ML ONE (20:24)
[2022-10-13 21:02] VITALS: BP 147/83; PULSE 65; O2SAT 97
--- NOTE | 2022-10-14 08:52 | XRAY ---
Indication: Left lower quadrant/flank pain. Sigmoid diverticulitis on CT 2 days ago. Multiple contiguous axial images obtained through the abdomen and pelvis without contrast. Comparison: October 11, 2022 Lung bases remain clear with stable tiny right base calcified granuloma. Heart not enlarged. Noncontrasted stomach and bowel loops are nonobstructed again with normal appendix. Previous sigmoid diverticulitis has improved/resolved. No free fluid/air. Again incidental splenic calcified granulomas and bilateral tubal ligation rings. Remaining liver, gallbladder, pancreas, spleen, adrenal glands, kidneys, ureters, bladder, and uterus are unremarkable for noncontrast exam. Again minimal aortoiliac calcifications without AAA. Impression: 1. Improved sigmoid diverticulitis. No complications. 2. 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 3. Remaining CT abdomen/pelvis without contrast exam is negative.
== END 2022-10-13 21:01 | disposition home or self-care (01) ==
LOC: ED 18:47
DX: N39.0 Urinary tract infection, site not specified (principal); R10.32 Left lower quadrant pain; R10.9 Unspecified abdominal pain; Z79.891 Long term (current) use of opiate analgesic; Z79.52 Long term (current) use of systemic steroids; Z79.899 Other long term (current) drug therapy; Z72.0 Tobacco use
CPT/HCPCS: 36000; 36415; 74176; 80053; 81015; 82150; 83690; 85025; 87086; 96374; 96375; 99284; J1170

== ENCOUNTER 2024-07-02 18:51 | Emergency (ER) | payer OTHER ==
[2024-07-02 19:41] VITALS: TEMP 98.1
--- NOTE | 2024-07-02 20:37 | ERPHSYRPT ---
- History of Present Illness Time Seen by Provider: 07/02/24 20:10 Patient Subjective Stated Complaint: pt states she stubbed her toe and now has pain in her toe- 4th digit rt foot Triage Nursing Assessment: pt alert and oriented, answers questions approp. pt ambulates into room with limping gait noted. resppirations nonlabored. skin warm and dry. 4th digit, rt foot with some bruising noted Physician History: 54-year-old female presents to emergency department for evaluation of pain to her right fourth digit. Patient states she stubbed her toe yesterday. Pain described as an ache that is localized. No radiation. Pain worse with movement and palpation. Pain improved with rest. Patient states that ambulating also worsens her pain. 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 No other injuries reported. Patient voices no other complaints or concerns at this time. Portions of this note were created with voice recognition technology. There may be grammatical, spelling, punctuation or sound alike errors Timing/Duration: yesterday Severity: moderate Modifying Factors: Improves With: movement Associated Symptoms: denies symptoms Allergies/Adverse Reactions: No Known Drug Allergies Allergy (Verified 07/02/24 19:51) Home Medications: Venlafaxine HCl 37.5 mg [Effexor 37.5 mg] 75 mg PO DAILY 12/12/23 [History] Duloxetine HCl [Drizalma Sprinkle] 60 mg PO DAILY 07/02/24 [History] Hx Tetanus, Diphtheria Vaccination/Date Given: Yes (2 yrs) Hx Influenza Vaccination/Date Given: No Hx Pneumococcal Vaccination/Date Given: No Immunizations Up to Date: Yes Travel Risk - International Travel Have you traveled outside of the country in past 3 weeks: No - Emerging Infectious Disease Are you exhibiting symptoms associated with any current EIDs: No - Review of Systems Constitutional: No Symptoms, No Fever, No Chills Eyes: No Symptoms Ears, Nose, & Throat: No Symptoms Respiratory: No Symptoms, No Cough, No Dyspnea Cardiac: No Symptoms, No Chest Pain, No Edema, No Syncope Abdominal/Gastrointestinal: No Symptoms, No Abdominal Pain, No Nausea, No Vomiting, No Diarrhea Genitourinary Symptoms: No Symptoms, No Dysuria Musculoskeletal: No Symptoms, No Back Pain, No Neck Pain Skin: No Symptoms, No Rash Neurological: No Symptoms, No Dizziness, No Focal Weakness, No Sensory Changes Psychological: No Symptoms Endocrine: No Symptoms Hematologic/Lymphatic: No Symptoms Immunological/Allergic: No Symptoms All Other Systems: Reviewed and Negative - Past Medical History Pertinent Past Medical History: Yes Neurological History: No Pertinent History, Peripheral Neuropathy ENT History: No Pertinent History Cardiac History: No Pertinent History Respiratory History: No Pertinent History Endocrine Medical History: No Pertinent History Musculoskeletal History: No Pertinent History GI Medical History: Diverticulitis History: Other Psycho-Social History: Depression Female Reproductive Disorders: No Pertinent History Other Medical History: Patient reports recurrent kidney stones - Past Surgical History Past Surgical History: Yes Neuro Surgical History: No Pertinent History Cardiac: No Pertinent History Respiratory: No Pertinent History Gastrointestinal: No Pertinent History Genitourinary: No Pertinent History Musculoskeletal: No Pertinent History Female Surgical History: Tubal Ligation - Female History Hx Now: No - Social History Smoking Status: Current every day smoker How long have you smoked: 38 yrs Exposure to second hand smoke: No Drug Use: marijuana Patient Lives Alone: No - Social Determinants of Health Will the patient participate in the screening: Declined to provide - Nursing Vital Signs Nursing Vital Signs: Initial Vital Signs Temperature 98.1 F 07/02/24 19:29 Pulse Rate 81 07/02/24 19:29 Respiratory Rate 16 07/02/24 19:29 Blood Pressure 145/98 07/02/24 19:29 O2 Sat by Pulse Oximetry 97 07/02/24 19:29 Pain Scale Pain Intensity 7 - Physical Exam General Appearance: no apparent distress, alert Eye Exam: PERRL/EOMI, eyes nml inspection Ears, Nose, Throat Exam: normal ENT inspection, moist mucous membranes Neck Exam: normal inspection, full range of motion Respiratory Exam: normal breath sounds, lungs clear, No respiratory distress Cardiovascular Exam: regular rate/rhythm, normal peripheral pulses Gastrointestinal/Abdomen Exam: soft, normal bowel sounds, No tenderness, No mass Back Exam: normal inspection, normal range of motion, No CVA tenderness, No vertebral tenderness Extremity Exam: normal inspection, normal range of motion, pelvis stable, other (Bruising at the right fourth digit. Overlying soft tissue intact. No open or draining lesions. Compartments are soft cap refill less than 2 seconds.) Neurologic Exam: alert, oriented x 3, cooperative, normal mood/affect, nml cerebellar function, nml station & gait, sensation nml, No motor deficits Skin Exam: normal color, warm, dry, No rash Lymphatic Exam: No adenopathy SpO2 Interpretation: normal SpO2: 97 O2 Delivery: Room Air - Course Nursing assessment & vital signs reviewed: Yes - Radiology Exams Foot X-ray Interpretation: Reviewed by me (No fracture or dislocation. Heel spur) Ordered Tests: Active Orders 24 hr Category Date Time Status FOOT (MINIMUM 3 VIEWS) Stat Exams 07/02/24 19:41 Taken - Progress Progress: improved Progress Note: 54-year-old female presents to emergency department for evaluation of pain to her right fourth digit. Physical exam reveals some bruising at this particular toe. The involved digits otherwise neurovascular tact distally compartments are soft cap refill less than 2 seconds. Nail plate is intact as well. X-ray negative for fracture dislocation. Incidental heel spur observed. Formal read pending. Patient inclined pain medication. Orthopedic shoe provided. Referral to orthopedic clinic provided as well. Patient voices no other complaints or concerns at this time. Portions of this note were created with voice recognition technology. There may be grammatical, spelling, punctuation or sound alike errors Complexity problem addressed is moderate acute complicated. No critical care time. Complexity of data reviewed and analyzed is moderate. Dr. Wells independently reviewed the x-ray of the right foot. Risk of complication and or risk of morbidity/mortality patient management is low. Vital stable time spent to discharge patient approximately 15 minutes. Plan of care established for shared decision making. No social determinants of health present impede follow- up. Portions of this note were created with voice recognition technology. There may be grammatical, spelling, punctuation or sound alike errors 07/02/24 20:35 Counseled pt/family regarding: diagnosis, need for follow-up, rad results - Departure Departure Disposition: Home Clinical Impression: Toe contusion, Heel spur Condition: Stable Critical Care Time: No Referrals: LUCAS KLEIN MD [Primary Care Provider] - Follow up/PCP as directed Additional Instructions: Discharge/Care Plan MARISA SARGENT was seen on 07/02/24 in the Emergency Room. The patient was counseled regarding Diagnosis,Lab results, Imaging studies, need for follow up and when to return to the Emergency Room. Prescriptions given: Discharge Note I have spoken with the patient and/or caregivers. I have explained the patient's condition, diagnosis and treatment plan based on the information available to me at this time. I have answered the patient's and/or caregiver's questions and addressed any concerns. The patient and/or caregivers have as good understanding of the patient's diagnosis, condition and treatment plan as can be expected at this point. The vital signs have been stable. The patient's condition is stable and appropriate for discharge from the emergency department. The patient will pursue further outpatient evaluation with the primary care physician or other designated or consulting physician as outlined in the discharge instructions. The patient and/or caregivers are agreeable to this plan of care and follow-up instructions have been explained in detail. The patient and/or caregivers have received these instruction. The patient/and or caregivers are aware that any significant change in condition or worsening of symptoms should prompt an immediate return to this or the closest emergency department or call 911. Outpatient Orders: Ortho Referral Time Frame: 1 Day, Facility: [facility]. Hosp, Location: [facility]
[2024-07-02 20:47] VITALS: BP 125/72
[2024-07-02 20:55] VITALS: PULSE 72; RESP 16; O2SAT 98
--- NOTE | 2024-07-03 08:55 | XRAY ---
Indication: 4th toe pain following injury. Comparison: None 3 nonweightbearing views right foot demonstrates tiny nondisplaced cortical fracture base 4th distal phalanx medial aspect. Incidental plantar heel spur. No other bony, articular, or soft tissue abnormalities.
== END 2024-07-02 20:59 | disposition home or self-care (01) ==
LOC: ED 18:51
DX: S90.121A Contusion of right lesser toe(s) without damage to nail, initial encounter (principal); W22.8XXA Striking against or struck by other objects, initial encounter; M77.31 Calcaneal spur, right foot; Z79.899 Other long term (current) drug therapy; Z72.0 Tobacco use
CPT/HCPCS: 73630; 99282

== ENCOUNTER 2024-12-19 15:52 | Emergency (ER) | payer OTHER ==
--- NOTE | 2024-12-19 15:55 | ERPHSYRPT ---
- History of Present Illness Time Seen by Provider: 12/19/24 15:55 Source: patient, family Exam Limitations: no limitations Physician History: This is a right-handed 54-year-old white female patient of Dr. Klein who is brought to the emergency department by private vehicle accompanied by her spouse secondary to a laceration that occurred just prior to arrival at home. The patient was washing dishes and there was a broken dish that caused small curvilinear laceration to the fourth dorsal knuckle right hand. Patient's tetanus status is up-to-date. Patient has a history of peripheral neuropathy, depression and is a daily smoker of tobacco. Timing/Duration: today Quality: painful Severity: mild Location: hands (Also aspect right fourth knuckle) Associated Symptoms: denies symptoms Allergies/Adverse Reactions: No Known Drug Allergies Allergy (Verified 12/19/24 16:03) Home Medications: Venlafaxine HCl 37.5 mg [Effexor 37.5 mg] 75 mg PO DAILY 12/12/23 [History] Duloxetine HCl [Drizalma Sprinkle] 60 mg PO DAILY 07/02/24 [History] Gabapentin 100 mg PO TID 12/19/24 [History] Hx Tetanus, Diphtheria Vaccination/Date Given: Yes (2 yrs) Hx Influenza Vaccination/Date Given: No Hx Pneumococcal Vaccination/Date Given: No Travel Risk - International Travel Have you traveled outside of the country in past 3 weeks: No - Emerging Infectious Disease Are you exhibiting symptoms associated with any current EIDs: No - Review of Systems Constitutional: No Symptoms Eyes: No Symptoms Ears, Nose, & Throat: No Symptoms Respiratory: No Symptoms Cardiac: No Symptoms Abdominal/Gastrointestinal: No Symptoms Genitourinary Symptoms: No Symptoms Musculoskeletal: No Symptoms Skin: Other (Skin laceration dorsal aspect right hand fourth knuckle) Neurological: No Symptoms Psychological: No Symptoms Endocrine: No Symptoms Hematologic/Lymphatic: No Symptoms Immunological/Allergic: No Symptoms All Other Systems: Reviewed and Negative - Past Medical History Pertinent Past Medical History: Yes Neurological History: No Pertinent History, Peripheral Neuropathy ENT History: No Pertinent History Cardiac History: No Pertinent History Respiratory History: No Pertinent History Endocrine Medical History: No Pertinent History Musculoskeletal History: No Pertinent History GI Medical History: Diverticulitis History: Other Psycho-Social History: Depression Female Reproductive Disorders: No Pertinent History Other Medical History: Patient reports recurrent kidney stones - Past Surgical History Past Surgical History: Yes Neuro Surgical History: No Pertinent History Cardiac: No Pertinent History Respiratory: No Pertinent History Gastrointestinal: No Pertinent History Genitourinary: No Pertinent History Musculoskeletal: No Pertinent History Female Surgical History: Tubal Ligation - Social History Smoking Status: Current every day smoker How long have you smoked: 38 yrs Exposure to second hand smoke: No Drug Use: marijuana Patient Lives Alone: No - Social Determinants of Health Will the patient participate in the screening: Declined to provide - Nursing Vital Signs Nursing Vital Signs: Initial Vital Signs Temperature 98.3 F 12/19/24 15:58 Pulse Rate 84 12/19/24 15:58 Respiratory Rate 16 12/19/24 15:58 Blood Pressure 123/85 12/19/24 15:58 O2 Sat by Pulse Oximetry 98 12/19/24 15:58 Pain Scale Pain Intensity 2 - Physical Exam General Appearance: no apparent distress, alert Eye Exam: PERRL/EOMI, eyes nml inspection Ears, Nose, Throat Exam: normal ENT inspection, moist mucous membranes Neck Exam: normal inspection, non-tender, supple, full range of motion Respiratory Exam: airway intact, No chest tenderness, No respiratory distress Gastrointestinal/Abdomen Exam: No tenderness Pelvic Exam: not done Rectal Exam: not done Back Exam: normal inspection, normal range of motion, No CVA tenderness, No vertebral tenderness Extremity Exam: normal inspection, normal range of motion, pelvis stable Neurologic Exam: alert, oriented x 3, cooperative, floor inspector II-XII nml as tested, normal mood/affect, nml cerebellar function, nml station & gait, sensation nml Skin Exam: laceration (1 cm curvilinear flap skin laceration dorsal aspect right hand. No foreign body. No active bleeding. Patient is neurovascularly intact. Tendons intact) Lymphatic Exam: No adenopathy SpO2 Interpretation: normal O2 Delivery: Room Air Procedures - Laceration/Wound Repair Right Dorsal Hand Time of Procedure: 17:09 Wound Location: Right, hand (Muscle aspect) Wound Length (cm): 1 Wound's Depth, Shape: superficial, linear (Previously near), flap Wound Explored: clean (Wound explored to the base in a bloodless field and no foreign body noted) Irrigated: Yes Hibiclens Prep: Yes Wound Repaired With: Steri-strips, Dermabond - Course Nursing assessment & vital signs reviewed: Yes - Progress Progress: improved Progress Note: 12/19/24 17:09 My medical decision making and the assignment of low complexity to this patient's medical issue today is based on review of the patient's past medical history, review the patient's medication list, reviewed patient drug allergy list, history present illness and physical findings on examination. The workup in this patient does not require any laboratory radiographic studies. Differential diagnosis includes but is not not limited to right hand dorsal aspect skin laceration, right hand dorsal aspect skin abrasion Counseled pt/family regarding: diagnosis Medical Desision Making - Independent Historian Additional History obtained from: Spouse - Diagnostic Testing Diagnostic test were ordered, analyzed, and reviewed by me: No - Risk of complications Minimal Risk: Minimal risk of morbidity - Departure Departure Disposition: Home Clinical Impression: Laceration of skin of right hand Condition: Stable Critical Care Time: No Referrals: LUCAS KLEIN MD [Primary Care Provider] - Follow up/PCP as directed Additional Instructions: Keep the current bandage in place for 24 hours. After 24 hours, remove the top dressing and leave the Steri-Strips in place. At that time you may rinse the site off daily with soapy water. Blot dry or use a chair and couch maker. Trim the Steri- Strips as they curl up. Do not pull off the Steri-Strips. If there are no contraindications, you may use Tylenol and ibuprofen for pain control.
[2024-12-19 16:08] VITALS: BP 123/85; PULSE 84; RESP 16; TEMP 98.3; O2SAT 98
== END 2024-12-19 17:36 | disposition home or self-care (01) ==
LOC: ED 15:52
DX: S61.214A Laceration without foreign body of right ring finger without damage to nail, initial encounter (principal); W45.8XXA Other foreign body or object entering through skin, initial encounter; Y93.G1 Activity, food preparation and clean up; Y92.000 Kitchen of unspecified non-institutional (private) residence as the place of occurrence of the external cause; Z79.899 Other long term (current) drug therapy; Z72.0 Tobacco use
CPT/HCPCS: 12001; 99281; 99282

== ENCOUNTER 2025-01-03 05:45 | Day surgery (SDC) | payer OTHER ==
[2025-01-03 06:25] VITALS: RESP 18
[2025-01-03] MEDS: Lactated Ringers 1,000 ML IV SCH (06:32)
[2025-01-03] MEDS ORDERED: propofoL IV ONE (07:27)
[2025-01-03] MEDS ORDERED: Zofran 4 MG/2 ML VIAL ONE (07:47)
[2025-01-03] MEDS ORDERED: Versed 2 MG/2 ML Injection ONE (07:50)
[2025-01-03 08:17] VITALS: TEMP 96.9
[2025-01-03 08:28] VITALS: BP 146/77; PULSE 58; O2SAT 97
--- NOTE | 2025-01-06 10:09 | OP ---
SURGERY DATE/TIME: 01/03/2025 [id number] PREOPERATIVE DIAGNOSIS: Screening exam. POSTOPERATIVE DIAGNOSIS: Normal colon. PROCEDURE: Colonoscopy. SURGEON: Lee Sheffield MD. ANESTHESIA: Medications were given by the anesthesia department. INDICATIONS: The patient is a 54-year-old white female presenting now for her first screening colonoscopy. The patient was apprised of the risks of the procedure including risk of perforation, phlebitis, untoward reaction to medication, bleeding, and missed lesions. The patient verbalized her understanding and desire to have procedure performed. DESCRIPTION OF PROCEDURE AND FINDINGS: The patient was given medication by the anesthesia department. She had continuous pulse oximetry, ECG monitoring, and intermittent blood pressure monitoring during the examination. She was placed in the left lateral decubitus position. Digital rectal examination was performed and revealed normal anal sphincter tone and no masses. The flexible Olympus videocolonoscope was used to intubate the rectum. A view of the colon was developed sequentially to the cecum. Upon insertion and withdrawal, including retroflexed view in the rectum, no mucosal lesions were encountered. The scope was removed from the patient, who tolerated the procedure well, and was sent back to outpatient recovery in good condition. The prep was noted to be good.
== END 2025-01-03 08:38 | disposition home or self-care (01) ==
LOC: SDC 05:45
PROVIDERS: ATTEND Family Medicine
DX: Z12.11 Encounter for screening for malignant neoplasm of colon (principal)
CPT/HCPCS: J2250; J2405; J2704